=== PATIENT | female | born 1975 | race Hispanic/Latino ===

== ENCOUNTER 2018-11-12 14:03 | Outpatient (CLI) | payer OTHER ==
--- NOTE | 2018-11-12 14:37 | RAD ---
Lumbar spine 3 views HISTORY: Low back pain. FINDINGS: There are 5 lumbar type vertebrae. Pedicles are intact. Vertebral body heights and alignmen t are maintained. Mild osteophytosis. No acute fracture or dislocation. IMPRESSION: No acute osseous abnormalities are demonstrated.
== END 2018-11-12 14:04 | disposition home or self-care (01) ==
LOC: NAV RAD 14:03
PROVIDERS: ATTEND Family Medicine
DX: Z02.71 Encounter for disability determination (principal); M15.9 Polyosteoarthritis, unspecified; G60.9 Hereditary and idiopathic neuropathy, unspecified
CPT/HCPCS: 72100